=== PATIENT | female | born 1960 | race Caucasian/White ===

== ENCOUNTER 2021-04-23 11:51 | Inpatient (IN) | payer MEDICAID, SELFPAY ==
[2021-04-23] VITALS (57 sets, daily range): BP systolic 86–156; BP diastolic 63–111; PULSE 86–180; RESP 14–28; TEMP 36.7–37.1; O2SAT 89–100
--- NOTE | ~2021-04-23 | XR_ITS ---
EXAMINATION: [id number] DATE: 04/24/2021 09:30 INDICATION: Left pleural effusion status post thoracentesis. TECHNIQUE: A single frontal view of the chest was obtained. COMPARISON: Chest single view 04/23/2021, chest CT 04/23/2021 FINDINGS: There is a small left pleural effusion. There are airspace opacities in all left lung zones , consistent with left hilar mass, left upper lobe collapse, and left basilar atelectasis. Calcified left lung nodules and calcified left hilar lymph nodes are consistent with old granulomatous disease. There are lucencies in right lung, consistent with emphysema. No pneumothorax. There is rightward di splacement of the mediastinum. IMPRESSION: 1. Small left pleural effusion. 2. Left hilar mass, left upper lobe collapse, and left basilar atelectasis. 3. Emphysema. Reviewed, dictated and finalized at location A. SEWER
--- NOTE | ~2021-04-23 | CT_ITS ---
EXAMINATION: CT brain wo con DATE: 04/23/2021 20:26 INDICATION: Confusion TECHNIQUE: Computed tomography (CT) of the head was performed without intravenous contrast. Sagittal and coronal reconstructions were performed. The mA was adjusted according to patient size. Iterative reconstruction technique was employed. The dose-length product was 681.00 mGy-cm. COMPARISON: None FINDINGS: No acute intracranial hemorrhage, acute infarction or abnormal extra axial fluid collection. There is mild scattered white matter hypoattenuation consistent with chronic small vessel ischemic disease. S ymmetric prominence of the sulci consistent with mild age-appropriate diffuse cerebral volume loss. V entricles are normal and symmetric. No mass/mass effect. The orbits, paranasal sinuses and mastoid ai r cells are normal. IMPRESSION: 1. No acute intracranial process. 3. Normal age-related changes including mild diffuse volume loss and mild scattered white matter hypo attenuation consistent with chronic small vessel ischemic disease. Reviewed, dictated and finalized at location . FOLDER IMPRESSION: 1. No acute intracranial process. 3. Normal age-related changes including mild diffuse volume loss and mild scatt ered white matter hypoattenuation consistent with chronic small vessel ischemic disease.
--- NOTE | ~2021-04-23 | US_ITS ---
EXAMINATION: US thoracentesis DATE: 04/24/2021 09:34 INDICATION: pleural effusion TECHNIQUE: The procedure and its risks, benefits, and alternatives were discussed with the patient. P otential risks discussed included bleeding, infection, and pneumothorax. The patient understood the r isks and agreed to proceed. The skin was prepped and draped in sterile fashion. 1% lidocaine was used for local anesthesia. Under ultrasound guidance, a 5 Fr catheter with trochar was advanced into the left pleural effusion. Fluid was aspirated. The catheter was removed, and a dressing was applied. The re were no immediate complications. FINDINGS: Ultrasound images demonstrate a left pleural effusion and the catheter within the fluid. IMPRESSION: 1. Successful ultrasound-guided thoracentesis yielding 300 mL of serosanguineous fluid. Reviewed, dictated and finalized at location A. NAVIGATOR IMPRESSION: 1. Successful ultrasound-guided thoracentesis yielding 300 mL of serosanguineo us fluid.
--- NOTE | ~2021-04-23 | XR_ITS ---
EXAMINATION: XR chest 1V portable DATE: 04/23/2021 14:09 INDICATION: Dyspnea. TECHNIQUE: A single frontal view of the chest was obtained. COMPARISON: None. FINDINGS: Calcified left lung nodules are consistent with old granulomatous disease. There is a large left pleural effusion. There are airspace opacities in left lung with a basilar predominance. There is mild scarring at right lung apex. No pneumothorax. The heart size is obscured. IMPRESSION: 1. Large left pleural effusion. 2. Airspace opacities in left lung, consistent with atelectasis versus pneumonia. Reviewed, dictated and finalized at location A. EL PT IMPRESSION: 1. Large left pleural effusion. 2. Airspace opacities in left lung, consistent with atelectasis versus pneumoni a.
--- NOTE | ~2021-04-23 | CT_ITS ---
EXAMINATION: CT diagnostic chest wo con DATE: 04/23/2021 14:59 INDICATION: Left pleural effusion, fatigue TECHNIQUE: Computed tomography (CT) of the chest was performed without intravenous contrast. Automate d exposure control and iterative reconstruction technique were employed. Exam dose: 129.31 mGy-cm to george exam DLP. COMPARISON: 04/23/2021 portable AP chest FINDINGS: Diffuse moderately prominent emphysematous changes of the lungs are noted. There is a huge left upper lobe centrally necrotic soft tissue mass, measuring up to 16 cm vertical d imension, up to 9 cm or greater transverse dimension, engulfing the left hilum, invading the mediasti num,, shifting the heart mediastinum rightward. The findings are consistent with a huge bases left najma ng malignancy. There is mild left pleural effusion. There is patchy left basilar lower lobe infiltrate/atelectasis. There is minimal dependent right basilar lower lobe atelectasis. Right lung otherwise appears clear o f infiltrate or consolidation. Normal heart size. Relatively low attenuation blood pool suggesting anemia. Small pericardial effusion, likely due to pe ricardial invasion by the malignancy. No thoracic aortic aneurysm. Limited body fat is noted. No suspicious osteolytic or osteoblastic lesions are noted. IMPRESSION: Huge left central pulmonary malignancy invading the left hilum and mediastinum, with lik ta pericardial involvement and small pericardial effusion, with rightward shift of heart and mediast inum, left lower lobe infiltrate/atelectasis, mild left pleural effusion Emphysema Suggestion of anemia Reviewed, dictated and finalized at Location A. Reviewed, dictated and finalized at location B. ICIAN RELATIONS MANAGER IMPRESSION: 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ly pericardial involvement and small pericardial effusio n, with rightward shift of heart and mediastinum, left lower lobe infiltrate/at electasis, mild left pleural effusion Emphysema Suggestion of anemia
--- NOTE | ~2021-04-23 | US_ITS ---
EXAMINATION:US venous doppler LE BI INDICATION:Leg swelling TECHNIQUE: Multiple grayscale, color flow and Doppler images of the right and left lower extremity de ep venous systems were obtained and reviewed. COMPARISON:No prior studies for comparison. FINDINGS: The common femoral, superficial femoral and popliteal veins demonstrate normal respiratory variation, augmentation and compressibility. Color flow is also seen within the posterior tibial, pe roneal, greater saphenous and profunda veins. IMPRESSION: 1: No lower extremity deep venous thrombosis. Reviewed, dictated and finalized at location A. NURSE
--- NOTE | 2021-04-23 12:13 | PC.NURSE ---
ED charge nurse Geraldine notified of patient's s/s and that patient was placed on O2 while in triage.
--- NOTE | 2021-04-23 13:40 | ECG_ITS ---
Measurements Intervals [place] Rate: 92 P: 57 OK: 122 QRS: 48 QRSD: 89 T: 137 QT: 383 QTc: 476 Interpretive Statements SINUS RHYTHM POSSIBLE LEFT ATRIAL ENLARGEMENT ST-T WAVE ABNORMALITY IN DIFFUSE LEADS- CONSIDER ISCHEMIA BASELINE WANDER- I, II, V1, V4-V6 ABNORMAL ECG Electronically Signed On 04-23-2021 14:21:51 PATENT SOLICITOR by Moe Sahu D.O.
[2021-04-23 14:00] LABS: Hematocrit 34.4 % (37.0-47.0); Hemoglobin 10.8 g/dL (12.0-15.0); Mean Corpuscular HGB Conc 31.4 g/dl (32-36); Mean Corpuscular Hemoglobin 27.8 pg (26-34); Mean Corpuscular Volume 88.4 fl (80-100); Mean Platelet Volume 9.7 fl (7.4-10.4); Platelet Count Result 509 k/mm3 (150-375); Red Blood Count 3.89 M/mm3 (4.2-5.4); Red Cell Distribution Width 15.6 % (11.5-14.5)
--- NOTE | 2021-04-23 14:00 | PC.NURSE ---
Pt states she is allergic to medications because she doesn't like to take medications, she sates the only medication she takes is wilver selzer
[2021-04-23 14:01] LABS: Alveolar/Arterial O2 Gradient 61.7 mmHg; Base Excess ABG 9.4 mEq/l (+/-2.0); Fractional Inspired Oxygen 24 %; HCO3 ABG 32.8 mEq/l (22.0-26.0); Oxygen Content ABG 14.6 %vol (16.0-22.0); Oxygen Saturation ABG 93.9 % (95.0-100.0); Oxyhemoglobin 88.8 % THb (90.0-100.0); PCO2 ABG 40.2 mmHg (35.0-45.0); PO2 ABG 61.6 mmHg (80.0-100.0); PO2 FiO2 Ratio Arterial Blood 2.57 %; Total Hemoglobin 11.7 g/dL (12.0-18.0)
[2021-04-23 14:03] LABS: Device NASAL CANNULA; Modified Allen's Test Pass; Site Drawn RIGHT RADIAL
[2021-04-23 14:18] LABS: Alanine Aminotransferase 19 U/L (4-35); Albumin Level 3.1 g/dL (3.5-5.1); Alkaline Phosphatase 187 U/L (38-126); Anion Gap 4 mmol/L (8-16); Aspartate Amino Transferase 25 U/L (14-36); Bilirubin,Total 0.3 mg/dL (0.2-1.3); Blood Urea Nitrogen 16 mg/dL (7-17); Calcium 8.5 mg/dL (8.4-10.2); Carbon Dioxide 37 mmol/L (22-30); Chloride 91 mmol/L (98-107); Estimated CRCL calculation 94 ml/min; Estimated Glomerular Filt Rate > 60; Glucose 103 mg/dL (65-110); Potassium 3.5 mmol/L (3.4-5.0); Sodium 132 mmol/L (137-145)
[2021-04-23 14:28] LABS: NT Pro B Type Natriuretic Pept 3650 pg/mL (5-100); Troponin I 0.029 ng/mL (0.000-0.034)
--- NOTE | 2021-04-23 14:38 | ED.GENADULT ---
HPI - General Adult General Chief complaint: Unspecified Stated complaint: shortness of breath, leg swelling Time Seen by Provider: 04/23/21 13:10 Source: patient Mode of arrival: ambulatory Limitations: no limitations History of Present Illness HPI narrative: Patient drove herself to the emergency room from work complaining of being dying FOR weeks, shortness of breath, coughing, swelling legs for weeks/months. Patient does not take oxygen, patient is not on any medication at home, patient smokes, does not drink and uses marijuana occasionally. Patient is not vaccinated for COVID-19. Patient also telling me that she contracted RSV virus from her grandson sometime in the last few days/weeks Related Data Allergies Allergy/AdvReac Type Severity Reaction Status Date / Time No Known Allergies Allergy Verified 04/23/21 15:25 Review of Systems Review of Systems: CONSTITUTIONAL: Denies fever, chills, or sweats. EYES: Denies visual changes, redness, or discharge. ENT: Denies rhinorrhea, congestion, sore throat, or otalgia. CARDIOVASCULAR: Denies chest pain, palpitations, or edema. RESPIRATORY: Been coughing with shortness of breath GASTROINTESTINAL: Denies abdominal pain, nausea, vomiting, or diarrhea. GENITOURINARY: Denies dysuria or hematuria. SKIN: Denies rash or itching. MUSCULOSKELETAL: Denies back pain, joint pain, or myalgia. NEUROLOGIC: Denies headache, numbness, or weakness. PSYCHIATRIC: Denies anxiety or depression. Exam Narrative: General appearance: Well-developed, malnourished Skin: 2+ edema lower extremity bilaterally Head: Normocephalic, nontraumatic Eyes: Clear conjunctiva ENT: Oropharynx normal, ears normal, nose normal Neck: Supple, nontender Chest and respiratory: Diminution of air entry bilaterally with scattered with rales Heart: Regular rate/rhythm Abdomen: Soft, nontender, no organomegaly, quiet bowel sounds Vascular: Normal peripheral pulses, normal capillary refill. Musculoskeletal: Normal range of motion, nontender back Neurologic: Alert and oriented ?3, CARTON FILLER is normal as tested, no gross motor deficit Course Course Emergency Course: Stable Consultations Consultation #1: DR MUÑOZ Date: 04/23/21 Time: 17:25 Consultation #2: Dr. Muñoz Requested to stop Cardizem and start amiodarone. Date: 04/23/21 Time: 17:26 Vital Signs Vital signs: Vital Signs Temperature 37.1 C 04/23/21 12:03 Pulse Rate 105 H 04/23/21 12:03 Respiratory Rate 22 H 04/23/21 12:03 Blood Pressure 156/83 H 04/23/21 12:03 Pulse Oximetry 94 04/23/21 12:03 Temperature 36.7 C 04/23/21 12:57 Pulse Rate 161 H 04/23/21 17:12 Respiratory Rate 17 04/23/21 13:04 Blood Pressure 104/91 H 04/23/21 17:12 Pulse Oximetry 99 04/23/21 13:04 Medical Decision Making MDM Narrative Medical decision making narrative: Congestive heart failure, pneumonia, pulmonary embolism, nephrotic syndrome is my concern. Labs, chest x-ray, UA ordered Differential Diagnosis Differential Diagnosis: Nephrotic syndrome, congestive heart failure, pneumonia, pulmonary embolism Vital Signs Vital Signs: Vital Signs Temperature 37.1 C 04/23/21 12:03 Pulse Rate 105 H 04/23/21 12:03 Respiratory Rate 22 H 04/23/21 12:03 Blood Pressure 156/83 H 04/23/21 12:03 Pulse Oximetry 94 04/23/21 12:03 Temperature 36.7 C 04/23/21 12:57 Pulse Rate 161 H 04/23/21 17:12 Respiratory Rate 17 04/23/21 13:04 Blood Pressure 104/91 H 04/23/21 17:12 Pulse Oximetry 99 04/23/21 13:04 Lab Data Result diagrams: 04/23/21 13:51 04/23/21 13:51 Labs: Lab Results 04/23/21 04/23/21 04/23/21 Range/Units 13:51 13:51 13:51 WB
[2021-04-23 14:51] LABS: White Blood Count 56.4 K/mm3 (4.5-10.0)
[2021-04-23 14:53] LABS: Band Neutrophils Percent 6 % (0-6); Lymphocytes Absolute Manual 0.56 K/mm3 (1.1-4.5); Monocytes Absolute Manual 1.12 K/mm3 (0.1-0.90); Monocytes Percent Manual 2 % (3-9); Neutrophils Percent Manual 91 % (46-73); Platelet Estimate Increased (Adequate); Total Cells Counted 100
[2021-04-23 14:54] LABS: Anisocytosis 2+ (NORMAL); Hypochromasia 1+ (NORMAL)
[2021-04-23 14:58] LABS: Add Urine Microscopic? YES; Appearance Urine Clear (Clear); Bacteria Urine Trace /hpf; Bilirubin Urine Negative (Negative); Blood Urine Negative (Negative); Color Urine Amber (Yellow); Glucose Urine UA Negative (Negative); Ketones Urine Negative (Negative); Leukocyte Esterase Ur Negative LEU/UL (Negative); Mucus Urine Rare /lpf; Nitrate Urine Negative (Negative); Protein Urine 1+ mg/dL (Negative); Specific Grav Ur 1.023 (1.001-1.035); Squamous Epithelial Cell Urine Occasional /hpf (Few); WBC Urine 0-3 /hpf
[2021-04-23] MEDS: NITROGLYCERIN OINTMENT 1 INCH DOSE TRANSDERM (15:26)
[2021-04-23] MEDS: FUROSEMIDE INJ 40 MG/4 ML VIAL 60 MG IV PUSH (15:26)
[2021-04-23 16:10] LABS: Lactate Dehydrogenase 480 U/L (313-618)
[2021-04-23] MEDS: dilTIAZem HCl INJ 25 MG/5 ML VIAL 10 MG IV PUSH (16:21)
--- NOTE | 2021-04-23 17:00 | PM.IMHP ---
H&P: HPI History of Present Illness Date/Time: 04/23/21 17:00 this is a 60-year-old female patient who came to the emergency room complaining that she had been very short of breath for weeks and months. The patient stated I feel like I am dying . The patient does not use oxygen at home she is on on any medication at home. She does occasionally smoke marijuana smokes at least a pack a cigarettes a day. She has also been complaining of being short of breath, coughing, and increased swelling to lower extremities for weeks and months. Her white count was noted to be 56.4. H&H is 10.8 and 34.4. Arterial blood gases pH 7.530 PO2 was 61.6. The patient was placed on oxygen at 2 L per nasal cannula. Chest x-ray was read as large left pleural effusion. Airspace opacities in left lung consistent with atelectasis versus pneumonia. CT of the chest was read as the following 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ghtward shift of heart and mediastinum, left lower lobe infiltrate/atelectasis, mild left pleural effusion. Dr. higginbotham was called the patient was in AFib with RVR with heart rate in the 170s. The patient was given Versed and we were going to cardiovert her however the patient's heart rate dropped. Patient's blood pressure initially was 156/83. But then dropped down to 86/63. Patient was started on amiodarone. The patient then converted. The curing room supervisor has seen the patient and I did talk to the curing room supervisor myself. He did suggest that the patient may need a pericardial window on may need to be transferred. I did call the [facility] transfer line and I spoke with a Dr. Wallace and then I spoke with who agree to accept the patient however we are just waiting on a bed at this time. I spoke with the daughter who them came to the bedside. The daughter was able to give me some information concerning her mother that she was not taking any medications. I called [facility] Radiology who had already left for the day and was not able to do a thoracentesis. They may possibly do it tomorrow. The patient was given Lasix, nitro, azithromycin, Rocephin, Cardizem IV push amiodarone Valium and romazicon. The patient is being admitted to observation status on the date of service of 04/23/2021. Chief Complaint: Shortness of breath left chest Review of Systems Review of Systems: All systems reviewed & are unremarkable except as noted in HPI and below Constitutional: Constitutional: Reports as per HPI and Reports no additional constitutional complaints Eyes: Eyes: Reports as per HPI and Reports no additional eye complaints ENT: Reports system reviewed and no additional complaints, except as documented and Reports Normal hearing present Cardiovascular: Cardiovascular: Reports no additional cardiovascular complaints Respiratory: Respiratory: Reports no additional respiratory complaints and Reports no additional respiratory complaints Gastrointestinal: Gastrointestinal: Reports as per HPI and Reports no additional gastrointestinal complaints Musculoskeletal: Musculoskeletal: Reports no additional musculoskeletal complaints Integumentary/Breasts: Skin/Breast: Reports system reviewed and no additional complaints, except as docu and Reports as per HPI Neurologic: Reports system reviewed and no additional complaints, except as documented, Reports as per HPI and Reports Normal hearing present Psychiatric: Psychiatric: Reports no additional psychiatric complaints and Reports as per HPI Endocrine: Endocrine: Reports no additional endocrine complaints Hematologic/Lymphatic: Hematologic/Lymphatic: Reports no additional hematologic/lymphatic complaints Allergic/Immunologic: Allergic/Immunologic: Reports no additional allergic/immunologic complaints [facility] Past Medical History Medical History (Updated 04/23/21 @ 19:21 by Malina
--- NOTE | 2021-04-23 17:05 | PM.CNCAR ---
Assessment and Plan Assessment and plan (1) Pneumonia: Qualifiers: Laterality: left Lung location: unspecified part of lung Pneumonia type: due to unspecified organism Qualified Code(s): J18.9 - Pneumonia, unspecified organism Code(s): J18.9 - Pneumonia, unspecified organism Status: Acute Assessment and Plan: On antibiotics. (2) Pleural effusion: Code(s): J90 - Pleural effusion, not elsewhere classified Status: Acute Assessment and Plan: S/P left thoracentesis while in ER. This could be related to malignancy. Obtain echo to determine if related to CHF. With small pericardial effusion probably due to invasion of malignancy on CT chest, would prefer she be transferred to facility with CT surgeon for pericardial window. Discussed with Dr. Ramirez in ER and Nancy Bender, hospitalist. However, if no beds available to be transferred then will have her admitted here to be stabilized and managed in the interim. (3) Atrial fibrillation and flutter: Code(s): I48.91 - Unspecified atrial fibrillation; I48.92 - Unspecified atrial flutter Status: Acute Assessment and Plan: Due to relative hypotension, would cardiovert her to sinus rhythm, and place her on Amiodarone drip to maintain sinus rhythm. Due to potential for hemopericardium from malignancy involvement, would not anticoagulate at this time. Discussed with Dr. Ramirez in ER. History of Present Illness History of Present Illness Consult date/time: 04/23/21 17:05 Reason for consult: Atrial fibrillation. 60 yr old woman presented to ER with sob and swelling of legs. She smokes 1 ppd. Reports for last couple of months she has noted more CANTRELL and swelling of her legs. Denies chest pain, palpitations, dizziness. In ED labs show WBC 56, Hb 10.8, Plt 503. Sodium 130, Potassium 3.5. NTproBNP 3,650. CXR shows large left pleural effusion and left atelectasis vs pneumonia. She was sent to thoracentesis and immediately developed atrial fib/flutter with RVR up to 190 bpm and her BP is 95-[address] chest shows Huge left central pulmonary malignancy invading left hilum and mediastinum, likely pericardial involvement and small pericardial effusion and rightward shift of heart and mediastinum.. LLL infiltrate/atelectasis. Mild lef pleural effusion. Emphysema. Reason For Visit: shortness of breath, leg swelling Review of Systems Review of Systems: All systems reviewed & are unremarkable except as noted in HPI and below Constitutional: Constitutional: Reports as per HPI, Denies chills, Reports fatigue and Denies fever(s) Cardiovascular: Cardiovascular: Reports as per HPI, Denies chest pain, Reports leg edema and Denies lightheadedness Respiratory: Respiratory: Reports as per HPI and Reports dyspnea Gastrointestinal: Gastrointestinal: Reports as per HPI and Denies abdominal pain Genitourinary: Genitourinary: Reports as per HPI and Denies dysuria Musculoskeletal: Musculoskeletal: Reports as per HPI Neurologic: Reports as per HPI, Denies dizziness and Denies syncope Meds Home Medications and Allergies Allergies Allergy/AdvReac Type Severity Reaction Status Date / Time No Known Allergies Allergy Verified 04/23/21 15:25 Vital Signs Vital Signs - 24 hr 04/23/21 12:03 04/23/21 12:57 04/23/21 13:04 Temperature 98.8 F 98.1 F Pulse Rate 105 H 106 H 104 H Respiratory Rate 22 H 18 17 Blood Pressure 156/83 H 133/82 133/82 Pulse Oximetry 94 98 99 Exam Const: General: cooperative, well developed and alert Resp: Auscultation: crackles, rales, rhonchi, wheezes and diminished lung sounds Cardio: Jugular venous distension: no JVD Rate: tachycardic Rhythm: abnormal rhythm Heart sounds: no murmurs GI: GI Palp: No abdominal tenderness and Yes Soft to palpation Neuro: General: oriented to person, oriented to place and oriented to time Extrem: Right lower extremity: edema Left lower extremity: edema Other: Mild
[2021-04-23 17:10] LABS: Partial Thromboplastin Time 33.2 SECONDS (22.3-36.8); Prothrombin Time 13.5 Seconds (11.1-14.7)
[2021-04-23] MEDS: AMIODARONE 150 MG/D5W 100 ML 150 MG/100 ML BAG 600 MG IV CONT (17:12)
[2021-04-23 17:13] LABS: D Dimer 1.29 ug/mL (<0.48)
[2021-04-23] MEDS: diazePAM INJ (*CRX) 10 MG/2 ML SYRINGE 5 MG IV PUSH (17:26)
--- NOTE | 2021-04-23 17:29 | PC.NURSE ---
Dr. Ramirez ordered amiodarone 150mg and Valium 5mg to relax patient, pt agreed with , pt has about 200ml of amiodarone left in bag , pt HR decreased to 96, Dr. Ramirez ordered to stop amiodarone drip, pt blood pressure currently 90/65,
--- NOTE | 2021-04-23 17:30 | ECG_ITS ---
Measurements Intervals [place] Rate: 95 P: 43 CT: 126 QRS: 24 QRSD: 84 T: 151 QT: 386 QTc: 487 Interpretive Statements SINUS RHYTHM POSSIBLE LEFT ATRIAL ENLARGEMENT ST-T WAVE ABNORMALITY IN DIFFUSE LEADS- CONSIDER ISCHEMIA ABNORMAL ECG Electronically Signed On 04-25-2021 10:40:32 OPTO MECHANICAL TECHNICIAN by Moe Sahu D.O.
--- NOTE | 2021-04-23 18:00 | PC.NURSE ---
Pt awake, alert and asked to use the bed frank, repositioned pt changed gown, daughter at bedside
[2021-04-23 19:04] LABS: Troponin I 0.022 ng/mL (0.000-0.034)
--- NOTE | 2021-04-23 19:39 | PC.NURSE ---
SINCERE Cruz called and said patient has been accepted to [facility]. Waiting for bed assignment.
--- NOTE | 2021-04-23 21:03 | PC.NURSE ---
spoke with MD Rivero about BP of 91/63 with lasix and Nitro paste order. Order for lasix D/C'd at this time. will re-asses when Nitro is due.
[2021-04-23 21:18] LABS: Troponin I 0.026 ng/mL (0.000-0.034)
--- NOTE | 2021-04-23 22:20 | PC.NURSE ---
SPoke with MD about Amio and Nitro order. Will hold d/c for now.
[2021-04-24] VITALS (47 sets, daily range): BP systolic 87–121; BP diastolic 66–85; PULSE 78–98; RESP 11–24; O2SAT 94–100
--- NOTE | 2021-04-24 | ECHO_ITS ---
Patient Info Name: Teressa Poon Age: 60 years : 1960 Gender: Female Ht: 62 in Wt: 105 lbs BSA: 1.44 m2 HR: 86 bpm BP: 95 / 72 mmHg Heart Rhythm: Sinus Rhythm Technical Quality: Good Exam Date: 04/24/2021 7:39 AM Exam Location: [facility] Patient Status: Inpatient Admit Date: 04/24/2021 Staff Ordering Physician: Moe Sahu DO Regional Medical Director: RENY Attending Provider: Ivet Huang MD Exam Type: CA echo doppler color flow Study Info Complete two-dimensional, color flow and Doppler transthoracic echocardiogram is performed. Summary 1. Complete two-dimensional, color flow and Doppler transthoracic echocardiogram is performed. 2. Left ventricular chamber dimension is normal. 3. Left ventricular systolic function is normal, estimated at 60-65%. 4. The left ventricular diastolic function is abnormal. 5. E/e' 15 is elevated. 6. The mitral valve has mildly calcified annulus. 7. There is mild to moderate tricuspid valve regurgitation. 8. Severe pulmonary hypertension, estimated pulmonary arterial systolic pressure is 91 mmHg. 9. There is trivial pericardial effusion. Hypolucent area attached to basal to mid pericardium of posterior wall. Consider cardiac MRI for further evaluation. Left Ventricle E/e' 15 is elevated. Left ventricular chamber dimension is normal. Left ventricular systolic function is normal, estimated at 60-65%. The left ventricular diastolic function is abnormal. Right Ventricle Right ventricular systolic function is normal and with normal TAPSE 1.9 cm. Right ventricular chamber dimension is normal. Left Atria Left atrial chamber dimension is normal. Right Atria Right atrial chamber dimension is normal. Aortic Valve The aortic valve is trileaflet. There is no aortic valve stenosis. There is no aortic valve regurgitation. Pulmonic Valve There is no pulmonic regurgitation. Mitral Valve The mitral valve has mildly calcified annulus. There is no mitral valve stenosis. There is trace mitral valve regurgitation. Tricuspid Valve There is mild to moderate tricuspid valve regurgitation. Severe pulmonary hypertension, estimated pulmonary arterial systolic pressure is 91 mmHg. Pericardium/Pleural There is trivial pericardial effusion. Hypolucent area attached to basal to mid pericardium of posterior wall. Consider cardiac MRI for further evaluation. Inferior Vena Cava Normal inferior vena cava with >50% collapse upon inspiration consistent with normal right atrial pressure, 5 mmHg. Aorta The aortic root size at the sinus of Valsalva is normal. Left Ventricular Outflow Tract Name Value Normal LVOT 2D LVOT Diameter 2.0 cm LVOT Doppler LVOT Peak Gradient 3 mmHg LVOT Mean Gradient 1 mmHg LVOT VTI 11 cm LVOT VTI/AV VTI Ratio 0.6 LVOT Stroke Volume 34 ml LVOT CO 2.7 l/min LVOT CI 1.9 l/min/m2 Pulmonic Valve
[2021-04-24] MEDS: SODIUM CHLORIDE 0.9% IV 500 ML IV CONT (01:53)
--- NOTE | 2021-04-24 02:43 | PC.NURSE ---
ssm still at max capacity, will remain on a wait list.
--- NOTE | 2021-04-24 02:46 | PC.NURSE ---
[facility] Transfer Center called for updated triage on patient. NO BED AVAILABLE as of yet. Patient remains on waitlist.
[2021-04-24 06:44] LABS: Hematocrit 34.2 % (37.0-47.0); Hemoglobin 10.6 g/dL (12.0-15.0); Mean Corpuscular Volume 90.5 fl (80-100); Mean Platelet Volume 9.8 fl (7.4-10.4); Platelet Count Result 516 k/mm3 (150-375); Red Blood Count 3.78 M/mm3 (4.2-5.4); Red Cell Distribution Width 15.8 % (11.5-14.5)
[2021-04-24 06:56] LABS: Lactic Acid Reflex 1.4 mmol/L (0.7-2.1)
[2021-04-24 07:00] LABS: Alanine Aminotransferase 16 U/L (4-35); Albumin Level 2.9 g/dL (3.5-5.1); Alkaline Phosphatase 208 U/L (38-126); Anion Gap 5 mmol/L (8-16); Aspartate Amino Transferase 28 U/L (14-36); Bilirubin,Total 0.3 mg/dL (0.2-1.3); Blood Urea Nitrogen 16 mg/dL (7-17); Calcium 8.5 mg/dL (8.4-10.2); Carbon Dioxide 37 mmol/L (22-30); Chloride 90 mmol/L (98-107); Estimated CRCL calculation 66 ml/min; Estimated Glomerular Filt Rate > 60; Glucose 92 mg/dL (65-110); Lactate Dehydrogenase 400 U/L (313-618); Lipase 20 U/L (23-300); Magnesium 1.8 mg/dL (1.6-2.3); Phosphorus 4.6 mg/dL (2.5-4.5); Potassium 3.6 mmol/L (3.4-5.0); Sodium 132 mmol/L (137-145)
--- NOTE | 2021-04-24 07:31 | PM.PNCARD ---
Progress Note: A&P Assessment and Plan (1) Pneumonia: Qualifiers: Laterality: left Lung location: unspecified part of lung Pneumonia type: due to unspecified organism Qualified Code(s): J18.9 - Pneumonia, unspecified organism Code(s): J18.9 - Pneumonia, unspecified organism Status: Acute Assessment and Plan: On antibiotics. (2) Pleural effusion: Code(s): J90 - Pleural effusion, not elsewhere classified Status: Acute Assessment and Plan: This could be related to malignancy. She will need tissue biopsy. Obtain echo to determine if related to CHF. With small pericardial effusion probably due to invasion of malignancy on CT chest, would prefer she be transferred to facility with CT surgeon for pericardial window. Discussed with Dr. Ramirez in ER and Nancy Bender, hospitalist. However, if no beds available to be transferred then will have her admitted here to be stabilized and managed in the interim. Await a bed at [facility]. (3) Atrial fibrillation and flutter: Code(s): I48.91 - Unspecified atrial fibrillation; I48.92 - Unspecified atrial flutter Status: Acute Assessment and Plan: Due to relative hypotension, would cardiovert her to sinus rhythm, and place her on Amiodarone drip to maintain sinus rhythm. However, she converted without need for DC cardioversion, and in sinus rhythm now. Due to potential for hemopericardium from malignancy involvement, would not anticoagulate at this time. Discussed with Dr. Ramirez in ER. D/C NTP. Obtain EKG. (4) COPD (chronic obstructive pulmonary disease): Code(s): J44.9 - Chronic obstructive pulmonary disease, unspecified Status: Acute Assessment and Plan: Actively wheezing. Will need bronchodilators. (5) Tobacco abuse: Code(s): Z72.0 - Tobacco use Status: Chronic Assessment and Plan: Counseled regarding smoking cessation. Subjective Date/time seen: 04/24/21 07:31 Reports feeling better than yesterday. Still has some sob. No chest pains. Exam Const: General: cooperative, no acute distress, well developed and alert Resp: Auscultation: wheezes and diminished lung sounds Cardio: Jugular venous distension: no JVD Rate: regular rate Rhythm: regular rhythm Heart sounds: no murmurs GI: GI Palp: No abdominal tenderness and Yes Soft to palpation Neuro: General: oriented to person, oriented to place and oriented to time Extrem: Right lower extremity: edema Left lower extremity: edema Other: Trace edema of both legs Objective Data Vital Signs Vital Signs: Vital Signs - 24 hr 04/23/21 12:03 04/23/21 12:57 04/23/21 13:04 Temperature 98.8 F 98.1 F Pulse Rate 105 H 106 H 104 H Respiratory Rate 22 H 18 17 Blood Pressure 156/83 H 133/82 133/82 Pulse Oximetry 94 98 99 04/23/21 13:05 04/23/21 13:15 04/23/21 13:16 Temperature Pulse Rate 104 H 101 H 100 Respiratory Rate 22 H 19 18 Blood Pressure 133/82 102/77 Pulse Oximetry 97 100 100 04/23/21 13:32 04/23/21 13:52 04/23/21 14:00 Temperature Pulse Rate 99 141 H 100 Respiratory Rate 17 21 H 18 Blood Pressure 103/74 Pulse Oximetry 100 97 97 04/23/21 14:02 04/23/21 14:15 04/23/21 14:17 Temperature Pulse Rate 100 95 93 Respiratory Rate 18 19 18 Blood Pressure 111/94 H Pulse Oximetry 97 96 98 04/23/21 14:30 04/23/21 14:31 04/23/21 14:46 Temperature Pulse Rate 93 93 94 Respiratory Rate 15 14 19 Blood Pressure 102/78 Pulse Oximetry 97 97 100 04/23/21 15:04 04/23/21 15:17 04/23/21 15:19 Temperature Pulse Rate 94 98 99 Respiratory Rate 20 19 20 Blood Pressure 126/111 H Pulse Oximetry 100 100 100 04/23/21 15:32 04/23/21 16:20 04/23/21 16:42 Temperature Pulse Rate 97 170 H 162 H Respiratory Rate 22 H 18 20 Blood Pressure Pulse Oximetry 100 98 92 04/23/21 16:45 04/23/21 16:46 04/23/21 17:00 Temperature Pulse Rate 160 H 159 H 180 H Respiratory Rate 21 H 20 21 H Bloo
--- NOTE | 2021-04-24 07:37 | ECG_ITS ---
Measurements Intervals [place] Rate: 95 P: 71 ID: [id number] QRS: 48 QRSD: 90 T: 136 QT: 384 QTc: 484 Interpretive Statements SINUS RHYTHM POSSIBLE LEFT ATRIAL ENLARGEMENT ST-T WAVE ABNORMALITY IN ANTEROLAT/HIGH LAT LEADS- CONSIDER ISCHEMIA BASELINE ARTIFACT- I, II, III, AVL, V1-V3 ABNORMAL ECG Electronically Signed On 04-24-2021 11:04:14 X RAY TECHNOLOGIST by Moe Sahu D.O.
[2021-04-24 07:58] LABS: White Blood Count 51.3 K/mm3 (4.5-10.0)
[2021-04-24 08:17] LABS: Band Neutrophils Percent 6 % (0-6); Monocytes Absolute Manual 2.56 K/mm3 (0.1-0.90); Monocytes Percent Manual 5 % (3-9); Neutrophils Absolute Manual 48.73 K/mm3 (1.7-7.2); Neutrophils Percent Manual 89 % (46-73); Total Cells Counted 100
[2021-04-24 08:18] LABS: Platelet Estimate Increased (Adequate)
[2021-04-24 09:52] LABS: pH Pleural Fluid 7.424 (7.210-7.500)
--- NOTE | 2021-04-24 10:03 | PC.NURSE ---
Patient states she wishes to hold off on lasix at this time and received medication until after she has ate. Meal tray ordered for patient. Patient provided snack and drink.
--- NOTE | 2021-04-24 10:13 | PC.NURSE ---
Patient states she has a reaction to most medications. She does not have a list of allergies.
[2021-04-24] MEDS: AMIODARONE 360 MG/D5W 200 ML 360 MG/200 ML BAG 16.67 MG IV CONT ×2 (11:11→22:28)
[2021-04-24] MEDS: FUROSEMIDE INJ 40 MG/4 ML VIAL IV PUSH ×2 (11:18→22:30)
[2021-04-24] MEDS: BENZOCAINE/MENTHOL (*BKC) 18 EA LOZENGE 1 LOZENGE PO (11:18)
--- NOTE | 2021-04-24 12:15 | PM.IMPN ---
Progress Note: A&P Assessment and Plan (1) Atrial fibrillation and flutter: Code(s): I48.91 - Unspecified atrial fibrillation; I48.92 - Unspecified atrial flutter Status: Acute Assessment and Plan: AFib with RVR noted after a little time in the ed Amiodarone drip continued converted back to SR Cardiology has been consulted telemonitor Heart healthy diet Hold off on anticoagulation with anticipation of surgical procedure in the near future EKG from this morning shows SR (2) Pneumonia: Qualifiers: Laterality: left Lung location: unspecified part of lung Pneumonia type: due to unspecified organism Qualified Code(s): J18.9 - Pneumonia, unspecified organism Code(s): J18.9 - Pneumonia, unspecified organism Status: Acute Assessment and Plan: Chest xray showed airspace opacities in left lung consistent with atelectasis vs PNA\ Chest ct shows left lower lobe infiltrate/atelectasis white count is 56.4 azithromycin and Rocephin Blood cultures are pending Sputum cultures is pending Coty to cultures (3) CHF (congestive heart failure): Qualifiers: Heart failure chronicity: unspecified Heart failure type: unspecified Qualified Code(s): I50.9 - Heart failure, unspecified Code(s): I50.9 - Heart failure, unspecified Status: Acute Assessment and Plan: Echo shows EF of 60-65% severe pulmonary hypertension Diastolic dysfunction is abnormal Would classify this as an acute exacerbation of diastolic heart failure secondary to malignancy IV lasix Pitting edema in the lower extremities Trend output Daily weights (4) Tobacco abuse: Code(s): Z72.0 - Tobacco use Status: Chronic Assessment and Plan: The patient was counseled on smoking cessation. 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ghtward shift of heart and mediastinum [facility] accepted patient awaiting a bed Cards is suggesting a pericardial window Might need to have this drained if no improvement noted Probably why she went into afib (7) COPD (chronic obstructive pulmonary disease): Code(s): J44.9 - Chronic obstructive pulmonary disease, unspecified Status: Acute Assessment and Plan: Emphysema noted on the CT Will probably need inhalers Supplemental oxygen She is probably in exacerbation due to increased wheezes, salty sputum changes, and increased shortness of breath Will add steroids Consider add pulm to the case (8) Malignancy: Code(s): C80.1 - Malignant (primary) neoplasm, unspecified Status: Acute Assessment and Plan: 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
--- NOTE | 2021-04-24 12:15 | P.PNIM_ITS ---
Progress Note: A&P Assessment and Plan (1) Atrial fibrillation and flutter: Code(s): I48.91 - Unspecified atrial fibrillation; I48.92 - Unspecified atrial flutter Status: Acute Assessment and Plan: * AFib with RVR noted after a little time in the ed * Amiodarone drip continued * converted back to SR * Cardiology has been consulted * telemonitor * Heart healthy diet * Hold off on anticoagulation with anticipation of surgical procedure in the near future * EKG from this morning shows SR (2) Pneumonia: Qualifiers: Laterality: left Lung location: unspecified part of lung Pneumonia type: due to unspecified organism Qualified Code(s): J18.9 - Pneumonia, unspecified organism Code(s): J18.9 - Pneumonia, unspecified organism Status: Acute Assessment and Plan: * Chest xray showed airspace opacities in left lung consistent with atelectasis vs PNA\ * Chest ct shows left lower lobe infiltrate/atelectasis * white count is 56.4 * azithromycin and Rocephin * Blood cultures are pending * Sputum cultures is pending * Coty to cultures (3) CHF (congestive heart failure): Qualifiers: Heart failure chronicity: unspecified Heart failure type: unspecified Qualified Code(s): I50.9 - Heart failure, unspecified Code(s): I50.9 - Heart failure, unspecified Status: Acute Assessment and Plan: * Echo shows EF of 60-65% * severe pulmonary hypertension * Diastolic dysfunction is abnormal * Would classify this as an acute exacerbation of diastolic heart failure secondary to malignancy * IV lasix * Pitting edema in the lower extremities * Trend output * Daily weights (4) Tobacco abuse: Code(s): Z72.0 - Tobacco use Status: Chronic Assessment and Plan: * The patient was counseled on smoking cessation. 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ghtward shift of heart and mediastinum * [facility] accepted patient awaiting a bed * Cards is suggesting a pericardial window * Might need to have this drained if no improvement noted * Probably why she went into afib (7) COPD (chronic obstructive pulmonary disease): Code(s): J44.9 - Chronic obstructive pulmonary disease, unspecified Status: Acute Assessment and Plan: * Emphysema noted on the CT * Will probably need inhalers * Supplemental oxygen * She is probably in exacerbation due to increased wheezes, salty sputum changes, and increased shortness of breath * Will add steroids * Consider add pulm to the case (8) Malignancy: Code(s): C80.1 - Malignant (primary) neoplasm, unspecified Status: Acute Assessment and Plan: * 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
--- NOTE | 2021-04-24 13:22 | PC.NURSE ---
patient ate 75% of meal. Water provided. patient has void and BM. Call light within reach.
[2021-04-24 23:53] LABS: EDCOVIDSCREEN Negative (Negative)
[2021-04-27 21:21] LABS: Glucose Pleural Fluid 68 mg/dL; LDH Pleural Fluid 835 U/L; Total Protein Pleural Fluid <3.0 g/dL
--- NOTE | 2021-05-04 05:23 | P.TS_ITS ---
Transfer Discharge Sum: Prov Provider Date of admission: 04/24/21 12:09 Primary care physician: VIBRATOR OPERATOR PHYSICIAN Admitting clinician: Ivet Huang MD Consults: 04/24/21 Consult to Physician Routine Comment: Consulting Provider: Rodolfo Simmons Reason for consultation: malignancy Has provider been notified: No Consult to Physician Routine Comment: Consulting Provider: Moe Sahu Reason for consultation: afib rvr Has provider been notified: Yes DS: Admitting Diagnosis Discharge Date 04/25/21 2312 Admitting Diagnosis Pericardial effusion / lung mass DS: Discharge Diagnosis Discharge Diagnosis (1) Atrial fibrillation and flutter: Code(s): I48.91 - Unspecified atrial fibrillation; I48.92 - Unspecified atrial flutter Status: Acute Assessment and Plan: * AFib with RVR noted after a little time in the ed * Amiodarone drip continued * converted back to SR * Cardiology has been consulted * telemonitor * Heart healthy diet * Hold off on anticoagulation with anticipation of surgical procedure in the near future * EKG from this morning shows SR (2) Pneumonia: Qualifiers: Laterality: left Lung location: unspecified part of lung Pneumonia type: due to unspecified organism Qualified Code(s): J18.9 - Pneumonia, unspecified organism Code(s): J18.9 - Pneumonia, unspecified organism Status: Acute Assessment and Plan: * Chest xray showed airspace opacities in left lung consistent with atelectasis vs PNA\ * Chest ct shows left lower lobe infiltrate/atelectasis * white count is 56.4 * azithromycin and Rocephin * Blood cultures are pending * Sputum cultures is pending * Coty to cultures (3) CHF (congestive heart failure): Qualifiers: Heart failure chronicity: unspecified Heart failure type: unspecified Qualified Code(s): I50.9 - Heart failure, unspecified Code(s): I50.9 - Heart failure, unspecified Status: Acute Assessment and Plan: * Echo shows EF of 60-65% * severe pulmonary hypertension * Diastolic dysfunction is abnormal * Would classify this as an acute exacerbation of diastolic heart failure secondary to malignancy * IV lasix * Pitting edema in the lower extremities * Trend output * Daily weights (4) Tobacco abuse: Code(s): Z72.0 - Tobacco use Status: Chronic Assessment and Plan: * The patient was counseled on smoking cessation. 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
--- NOTE | 2021-05-04 05:23 | PM.TDS ---
Transfer Discharge Sum: Prov Provider Date of admission: 04/24/21 12:09 Primary care physician: CRADLE PLACER PHYSICIAN Admitting clinician: Ivet Huang MD Consults: 04/24/21 Consult to Physician Routine Comment: Consulting Provider: Rodolfo Simmons Reason for consultation: malignancy Has provider been notified: No Consult to Physician Routine Comment: Consulting Provider: Moe Sahu Reason for consultation: afib rvr Has provider been notified: Yes DS: Admitting Diagnosis Discharge Date 04/25/212 Admitting Diagnosis Pericardial effusion / lung mass DS: Discharge Diagnosis Discharge Diagnosis (1) Atrial fibrillation and flutter: Code(s): I48.91 - Unspecified atrial fibrillation; I48.92 - Unspecified atrial flutter Status: Acute Assessment and Plan: AFib with RVR noted after a little time in the ed Amiodarone drip continued converted back to SR Cardiology has been consulted telemonitor Heart healthy diet Hold off on anticoagulation with anticipation of surgical procedure in the near future EKG from this morning shows SR (2) Pneumonia: Qualifiers: Laterality: left Lung location: unspecified part of lung Pneumonia type: due to unspecified organism Qualified Code(s): J18.9 - Pneumonia, unspecified organism Code(s): J18.9 - Pneumonia, unspecified organism Status: Acute Assessment and Plan: Chest xray showed airspace opacities in left lung consistent with atelectasis vs PNA\ Chest ct shows left lower lobe infiltrate/atelectasis white count is 56.4 azithromycin and Rocephin Blood cultures are pending Sputum cultures is pending Coty to cultures (3) CHF (congestive heart failure): Qualifiers: Heart failure chronicity: unspecified Heart failure type: unspecified Qualified Code(s): I50.9 - Heart failure, unspecified Code(s): I50.9 - Heart failure, unspecified Status: Acute Assessment and Plan: Echo shows EF of 60-65% severe pulmonary hypertension Diastolic dysfunction is abnormal Would classify this as an acute exacerbation of diastolic heart failure secondary to malignancy IV lasix Pitting edema in the lower extremities Trend output Daily weights (4) Tobacco abuse: Code(s): Z72.0 - Tobacco use Status: Chronic Assessment and Plan: The patient was counseled on smoking cessation. 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ghtward shift of heart and mediastinum [facility] accepted patient awaiting a bed Cards is suggesting a pericardial window Might need to have this drained if no improvement noted Probably why she went into afib (7) COPD (chronic obstructive pulmonary disease): Code(s): J44.9 - Chronic obstructive pulmonary disease, unspecified Status: Acute Assessment and Plan: Emphysema noted on the CT Will probably need inhalers Supplemental oxygen She is probably in exacerbation due to increased wheezes, salty sputum changes, and increased shortness of breath Will add steroids Consider add pulm to the case (8) Malignancy: Code(s): C80.1 - Malignant (primary) neoplasm, unspecified Status: Acute Assessment and Plan: 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
== END 2021-04-25 00:23 | disposition short-term general hospital (02) | DRG 136 ==
LOC: ANHED 15:08 → ANHIMU 04-24 08:55 → ANH3MEDSUR 04-30 10:59
PROVIDERS: Emergency Medicine; Nurse Practitioner; Admitting Provider Internal Medicine; Emergency Provider Emergency Medicine; Visit Provider Nurse Practitioner
DX: C34.02 Malignant neoplasm of left main bronchus; I48.91 Unspecified atrial fibrillation; I48.92 Unspecified atrial flutter; J18.9 Pneumonia, unspecified organism; I50.33 Acute on chronic diastolic (congestive) heart failure; J91.8 Pleural effusion in other conditions classified elsewhere; I31.3 Pericardial effusion (noninflammatory); I27.20 Pulmonary hypertension, unspecified; J43.9 Emphysema, unspecified; Z20.822 Contact with and (suspected) exposure to COVID-19; D72.829 Elevated white blood cell count, unspecified; F17.210 Nicotine dependence, cigarettes, uncomplicated; Z28.21 Immunization not carried out because of patient refusal
CPT/HCPCS: 32555; 36415; 36600; 70450; 71045; 71250; 80053; 80299; 81001; 82805; 82945; 83605; 83615; 83690; 83735; 83880; 83986; 84100; 84157; 84443; 84484; 85025; 85380; 85610; 85730; 87040; 87070; 87075; 87205; 87426; 88104; 88108; 88305; 93005; 93306; 93970; 96361; 96365; 96367; 96375; 96376; 99285; A9270; C9803; G0378; G0379; J0282; J0456; J0696; J1940; J3360; J7040

== ENCOUNTER 2021-05-20 16:23 | Inpatient (IN) | payer MEDICAID, SELFPAY ==
[2021-05-20] VITALS (13 sets, daily range): BP systolic 103–180; BP diastolic 67–95; PULSE 78–89; RESP 13–26; TEMP 36.1; O2SAT 95–99
--- NOTE | ~2021-05-20 | CT_ITS ---
EXAMINATION: CTA chest PE protocol DATE: 05/20/2021 21:53 INDICATION: Shortness of breath, elevated d-dimer. History of lung cancer. TECHNIQUE: Computed tomography angiography (CTA) of the chest was performed with 100 mL Omnipaque-350 intravenous contrast timed to evaluate the pulmonary arteries. Coronal maximum intensity projection 3D-reconstructions were created by the technologist. Automated exposure control and iterative reconst ruction technique were employed. Exam dose: 144.58 mGy-cm total exam DLP. COMPARISON: 05/20/2021 portable AP chest 04/23/2021 CT chest FINDINGS: There is a huge up to 10 x 15 cm centrally hypodense presumably necrotic mass of the left u pper lobe, with invasion of the left hilum and mediastinum, with extension into the pericardial area and likely invasion of the left ventricular myocardium, with compression and invasion of the left pul monary veins. There is compression of the main left pulmonary and upper lobe arteries. There is right soriano shift of the heart mediastinum. No pulmonary embolism is detected. No thoracic aortic aneurysm or dissection. Prominent emphysematous changes are noted. There is mild discoid atelectasis and/or scarring in the l ower lobes. Mild left pleural effusion. No suspicious osteolytic or osteoblastic lesions are noted. IMPRESSION: Huge left upper lobe lung mass invading the left hilum, mediastinum and left heart and l eft pulmonary veins No pulmonary embolism is detected. Reviewed, dictated and finalized at [facility]. Reviewed, dictated and finalized at location A. OR APPLICATION PROGRAMMER IMPRESSION: Huge left upper lobe lung mass invading the left hilum, mediastinu m and left heart and left pulmonary veins No pulmonary embolism is detected.
--- NOTE | ~2021-05-20 | US_ITS ---
EXAMINATION: US venous doppler [facility] DATE: 05/23/2021 16:54 INDICATION: Lower limb edema. TECHNIQUE: Grayscale ultrasound images without and with compression and Doppler ultrasound images of the bilateral lower extremity veins were obtained. COMPARISON: Ultrasound 04/24/2021 FINDINGS: The visualized portions of right common femoral vein, profunda (deep) femoral vein, femoral vein, pop liteal vein, peroneal veins, posterior tibial veins, and greater saphenous vein outflow are patent. The visualized portions of left common femoral vein, profunda femoral vein, femoral vein, popliteal v ein, peroneal veins, posterior tibial veins, and greater saphenous vein outflow are patent. IMPRESSION: 1. No deep venous thrombosis. Reviewed, dictated and finalized at location A. D NURSE
--- NOTE | ~2021-05-20 | XR_ITS ---
EXAMINATION: XR chest 1V portable EXAM DATE: 05/20/2021 19:16 INDICATION: Shortness of breath. Left hilar malignancy TECHNIQUE: Portable AP frontal chest x-ray was obtained. Comparison is made to prior examination from 04/24/2021. FINDINGS: Left lung lobar collapse and pleural effusion. Enlarged cardiomediastinal silhouette. Left hilar malignancy was confirmed on chest CT last month. Right lung is clear. No pneumothorax. There ar e no osseous abnormalities identified. There is no significant interval change. IMPRESSION: Left hilar, mediastinal malignancy, partially collapsed left lung. Reviewed, dictated and finalized at location G. IFIED JUVENILE PROBATION OFFICER
--- NOTE | 2021-05-20 19:08 | ECG_ITS ---
Measurements Intervals [place] Rate: 83 P: 30 PA: 132 QRS: 35 QRSD: 90 T: 123 QT: 377 QTc: 443 Interpretive Statements SINUS RHYTHM ST-T WAVE ABNORMALITY IN INFERIOR LEADS- CONSIDER ISCHEMIA BASELINE ARTIFACT- I, II, III, AVR, AVL, AVF, V2-V6 ABNORMAL ECG Electronically Signed On 05-20-2021 20:29:09 LUMBER LOADER by Moe Sahu D.O.
--- NOTE | 2021-05-20 19:09 | ED.GENADULT ---
HPI - General Adult General Chief complaint: Unspecified <Juliet Rivero MD - Last Filed: 05/24/21 08:33> Stated complaint: MULTIPLE C/O <Juliet Rivero MD - Last Filed: 05/24/21 08:33> Time Seen by Provider: 05/20/21 18:50 <Juliet Rivero MD - Last Filed: 05/24/21 08:33> Source: patient <Juliet Rivero MD - Last Filed: 05/24/21 08:33> History of Present Illness HPI narrative: Patient is a 60 y/o female complaining SOB, malaise, leg swelling for several days. There is no known alleviating or exacerbating factor. She feels like she may be catching pneumonia and she may fluid built up. She also has decrease urination. Of note, she was evaluated here recently and found to have lung mass with pericardial invasion and sent to [facility] for evaluation. She states that she was discharge about 2 weeks ago. <Juliet Rivero MD - Last Filed: 05/24/21 08:33> Related Data Home medications: Home Medications Medication Instructions Recorded Confirmed amiodarone 200 mg PO DAILY 05/20/21 05/20/21 dexamethasone 4 mg PO DAILY 05/20/21 05/20/21 pantoprazole 40 mg PO DAILY 05/20/21 05/23/21 dextromethorphan HBr [Delsym] 30 mg PO PRN PRN 05/23/21 05/23/21 <Juliet Rivero MD - Last Filed: 05/24/21 08:33> Allergies/adverse reactions: Allergies Allergy/AdvReac Type Severity Reaction Status Date / Time black tea AdvReac Other Uncoded 05/20/21 20:48 pain meds AdvReac Other Uncoded 05/23/21 14:40 sausage AdvReac Other Uncoded 05/20/21 20:48 <Juliet Rivero MD - Last Filed: 05/24/21 08:33> Review of Systems Constitutional: Constitutional: Denies chills, Denies fever(s), Denies headache(s) and Denies weakness <Juliet Rivero MD - Last Filed: 05/24/21 08:33> Eyes: Eyes: Denies blurry vision <Juliet Rivero MD - Last Filed: 05/24/21 08:33> ENT: Denies headache(s) and Denies neck pain <Juliet Rivero MD - Last Filed: 05/24/21 08:33> Cardiovascular: Cardiovascular: Denies chest pain and Reports dyspnea <Juliet Rivero MD - Last Filed: 05/24/21 08:33> Respiratory: Respiratory: Denies cough and Reports dyspnea <Juliet Rivero MD - Last Filed: 05/24/21 08:33> Gastrointestinal: Gastrointestinal: Denies abdominal pain, Denies diarrhea, Denies nausea and Denies vomiting <Juliet Rivero MD - Last Filed: 05/24/21 08:33> Genitourinary: Genitourinary: Denies hematuria and Denies dysuria <Juliet Rivero MD - Last Filed: 05/24/21 08:33> Musculoskeletal: Musculoskeletal: Denies back pain, Denies neck pain and Reports other (leg swelling) <Juliet Rivero MD - Last Filed: 05/24/21 08:33> Neurologic: Denies headache(s) and Denies weakness <Juliet Rivero MD - Last Filed: 05/24/21 08:33> PMFSH Past Medical History Medical History: Medical History (Updated 05/23/21 @ 15:54 by Nancy Bender NP) Atrial fibrillation and flutter COPD (chronic obstructive pulmonary disease) Malignancy Pericardial effusion Pericardial mass Tobacco abuse <Juliet Rivero MD - Last Filed: 05/24/21 08:33> Surgical History Surgical History: Surgical History History of lung biopsy No pertinent past surgical history <Juliet Rivero MD - Last Filed: 05/24/21 08:33> Family History Family History: Family History Father Heart disease Mother Stomach cancer <Juliet Rivero MD - Last Filed: 05/24/21 08:33> Social History Social History: Social History (Updated 05/23/21 @ 15:45 by Nancy Bender NP) Social History: The patient is and she lives home alone. She smoked at least a pack a cigarettes a day. She stated that she has quit since her last admission. She has 3 children 2 sons and a daughter. The daughter is the durable power private tutor for healthcare. The patient denies any alcohol and occasionally smokes marijuana. 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
[2021-05-20 19:17] LABS: Hematocrit 35.1 % (37.0-47.0); Hemoglobin 10.7 g/dL (12.0-15.0); Mean Corpuscular HGB Conc 30.5 g/dl (32-36); Mean Corpuscular Hemoglobin 28.9 pg (26-34); Mean Corpuscular Volume 94.9 fl (80-100); Mean Platelet Volume 9.9 fl (7.4-10.4); Platelet Count Result 186 k/mm3 (150-375); Red Cell Distribution Width 21.6 % (11.5-14.5); White Blood Count 48.9 K/mm3 (4.5-10.0)
[2021-05-20 19:27] LABS: Alanine Aminotransferase 30 U/L (4-35); Albumin Level 3.3 g/dL (3.5-5.1); Alkaline Phosphatase 135 U/L (38-126); Anion Gap 8 mmol/L (8-16); Aspartate Amino Transferase 21 U/L (14-36); Bilirubin,Total 0.3 mg/dL (0.2-1.3); Blood Urea Nitrogen 21 mg/dL (7-17); Calcium 8.2 mg/dL (8.4-10.2); Carbon Dioxide 31 mmol/L (22-30); Chloride 98 mmol/L (98-107); Estimated CRCL calculation 96 ml/min; Estimated Glomerular Filt Rate > 60; Glucose 110 mg/dL (65-110); Potassium 4.1 mmol/L (3.4-5.0); Sodium 137 mmol/L (137-145)
[2021-05-20] MEDS: SODIUM CHLORIDE 0.9% IV 1,000 ML 999 ML IV CONT (19:33)
[2021-05-20 19:45] LABS: Add Urine Microscopic? YES; Appearance Urine Clear (Clear); Bilirubin Urine Negative (Negative); Blood Urine Negative (Negative); Color Urine Yellow (Yellow); Glucose Urine UA 2+ mg/dL (Negative); Ketones Urine Negative (Negative); Leukocyte Esterase Ur Negative LEU/UL (Negative); Mucus Urine Moderate /lpf; Nitrate Urine Negative (Negative); Protein Urine Negative (Negative); Specific Grav Ur 1.029 (1.001-1.035); Squamous Epithelial Cell Urine Occasional /hpf (Few); Urobilinogen Urine Negative mg/dL (<2.0); WBC Urine 0-3 /hpf
[2021-05-20 20:20] LABS: Anisocytosis 1+ (NORMAL); Band Neutrophils Percent 18 % (0-6); Lymphocytes Absolute Manual 0.48 K/mm3 (1.1-4.5); Monocytes Absolute Manual 0.97 K/mm3 (0.1-0.90); Monocytes Percent Manual 2 % (3-9); Neutrophils Absolute Manual 47.43 K/mm3 (1.7-7.2); Neutrophils Percent Manual 79 % (46-73); Platelet Estimate Adequate (Adequate); Total Cells Counted 100; Troponin I 0.036 ng/mL (0.000-0.034)
[2021-05-20 20:21] LABS: Hypochromasia 1+ (NORMAL)
[2021-05-20 21:27] LABS: D Dimer 0.67 ug/mL (<0.48)
[2021-05-20 22:58] LABS: Troponin I 0.065 ng/mL (0.000-0.034)
[2021-05-21] VITALS (80 sets, daily range): BP systolic 88–118; BP diastolic 58–76; PULSE 78–125; RESP 10–24; O2SAT 92–100
[2021-05-21 00:13] LABS: Influenza A QL RT-PCR Negative (Negative); Influenza B QL RT-PCR Negative (Negative); SARS-CoV-2 RNA PCR Negative
[2021-05-21 02:40] LABS: Troponin I 0.085 ng/mL (0.000-0.034)
[2021-05-21] MEDS: AMIODARONE HCL 200 MG TABLET PO (08:52)
[2021-05-21] MEDS: PANTOPRAZOLE 40 MG TABLET PO (08:52)
--- NOTE | 2021-05-21 09:53 | PC.NURSE ---
recovery unit operator made contact with [facility] to find out the status of a bed for pt. [facility]. Facility is still at max capacity
--- NOTE | 2021-05-21 11:27 | PC.NURSE ---
risk assessment analyst ordered pt room tray at [phone]
--- NOTE | 2021-05-21 11:46 | PC.NURSE ---
junior legal secretary delivered room tray to pt at [phone]
--- NOTE | 2021-05-21 17:21 | PC.NURSE ---
payroll secretary brought pt room tray. pt is sitting up and eating at this time.
[2021-05-22] VITALS (29 sets, daily range): BP systolic 89–115; BP diastolic 61–95; PULSE 81–131; RESP 11–30; TEMP 36.5; O2SAT 17–100
[2021-05-22] MEDS: SODIUM CHLORIDE 0.9% IV 1,000 ML 999 ML IV CONT (03:06)
--- NOTE | 2021-05-22 03:45 | PC.NURSE ---
Rimma ramos/[facility] Transfer Center called. Patient still on waitlist, no beds available as of yet. Will call back with updates...&/or when one becomes available.
[2021-05-22 05:45] LABS: Hematocrit 32.7 % (37.0-47.0); Hemoglobin 10.1 g/dL (12.0-15.0); Mean Corpuscular HGB Conc 30.9 g/dl (32-36); Mean Corpuscular Hemoglobin 29.4 pg (26-34); Mean Corpuscular Volume 95.3 fl (80-100); Mean Platelet Volume 9.8 fl (7.4-10.4); Platelet Count Result 161 k/mm3 (150-375); Red Blood Count 3.43 M/mm3 (4.2-5.4); Red Cell Distribution Width 21.9 % (11.5-14.5); White Blood Count 33.1 K/mm3 (4.5-10.0)
[2021-05-22 06:01] LABS: Alanine Aminotransferase 32 U/L (4-35); Albumin Level 2.9 g/dL (3.5-5.1); Alkaline Phosphatase 106 U/L (38-126); Anion Gap 5 mmol/L (8-16); Aspartate Amino Transferase 26 U/L (14-36); Bilirubin,Total 0.2 mg/dL (0.2-1.3); Blood Urea Nitrogen 17 mg/dL (7-17); Calcium 7.6 mg/dL (8.4-10.2); Carbon Dioxide 28 mmol/L (22-30); Chloride 99 mmol/L (98-107); Estimated CRCL calculation 123 ml/min; Estimated Glomerular Filt Rate > 60; Glucose 94 mg/dL (65-110); Sodium 132 mmol/L (137-145)
[2021-05-22 06:07] LABS: Band Neutrophils Percent 3 % (0-6); Metamyelocytes Percent 2 %; Monocytes Absolute Manual 0.99 K/mm3 (0.1-0.90); Monocytes Percent Manual 3 % (3-9); Neutrophils Absolute Manual 31.44 K/mm3 (1.7-7.2); Neutrophils Percent Manual 92 % (46-73); Platelet Estimate Adequate (Adequate); Total Cells Counted 100
--- NOTE | 2021-05-22 07:15 | PC.NURSE ---
meal ordered for patient.
[2021-05-22] MEDS: PANTOPRAZOLE SODIUM IV 40 MG VIAL IV PUSH (08:14)
[2021-05-22] MEDS: DEXAMETHASONE 4 MG TABLET PO (08:45)
[2021-05-22] MEDS: AMIODARONE HCL 200 MG TABLET PO (08:46)
[2021-05-23] VITALS (16 sets, daily range): BP systolic 94–150; BP diastolic 65–104; PULSE 77–138; RESP 12–22; TEMP 36.4–36.7; O2SAT 96–100; BMI 20.7; BMI 20.5
--- NOTE | 2021-05-23 04:40 | PC.NURSE ---
Nika with [facility] called and stated [facility] is still over capacity and Te[facility]a is still on the board for a bed.
--- NOTE | 2021-05-23 07:29 | PC.NURSE ---
This RN ordered Breakfast lunch and dinner for Pt
[2021-05-23] MEDS: PANTOPRAZOLE SODIUM IV 40 MG VIAL IV PUSH (09:09)
[2021-05-23 11:34] LABS: Hematocrit 32.9 % (37.0-47.0); Hemoglobin 10.3 g/dL (12.0-15.0); Mean Corpuscular HGB Conc 31.3 g/dl (32-36); Mean Corpuscular Hemoglobin 29.3 pg (26-34); Mean Corpuscular Volume 93.5 fl (80-100); Mean Platelet Volume 9.8 fl (7.4-10.4); Platelet Count Result 182 k/mm3 (150-375); Red Blood Count 3.52 M/mm3 (4.2-5.4); White Blood Count 42.5 K/mm3 (4.5-10.0)
[2021-05-23 11:44] LABS: Alanine Aminotransferase 33 U/L (4-35); Albumin Level 3.1 g/dL (3.5-5.1); Alkaline Phosphatase 116 U/L (38-126); Anion Gap 3 mmol/L (8-16); Aspartate Amino Transferase 22 U/L (14-36); Bilirubin,Total 0.3 mg/dL (0.2-1.3); Blood Urea Nitrogen 13 mg/dL (7-17); Calcium 8.4 mg/dL (8.4-10.2); Carbon Dioxide 32 mmol/L (22-30); Chloride 96 mmol/L (98-107); Estimated CRCL calculation 123 ml/min; Estimated Glomerular Filt Rate > 60; Glucose 105 mg/dL (65-110); Potassium 3.9 mmol/L (3.4-5.0); Sodium 131 mmol/L (137-145)
[2021-05-23 12:05] LABS: Anisocytosis 1+ (NORMAL); Band Neutrophils Percent 10 % (0-6); Hypochromasia 1+ (NORMAL); Lymphocytes Absolute Manual 0.42 K/mm3 (1.1-4.5); Monocytes Absolute Manual 0.42 K/mm3 (0.1-0.90); Monocytes Percent Manual 1 % (3-9); Neutrophils Absolute Manual 41.65 K/mm3 (1.7-7.2); Neutrophils Percent Manual 88 % (46-73); Platelet Estimate Adequate (Adequate); Total Cells Counted 100
[2021-05-23 12:35] LABS: Troponin I 0.135 ng/mL (0.000-0.034)
--- NOTE | 2021-05-23 15:32 | PM.IMHP ---
H&P: HPI History of Present Illness Date/Time: 05/23/21 1400 this is a 60-year-old female patient who was diagnosed with lung cancer 1 month ago. The patient stated that she has undergoing radiation treatment and she said that she did have a biopsy and she is waiting for the cytology. The patient came into the hospital on 05/20/2021 with complaints of shortness of breath, malaise, leg swelling for several days. The patient has had decreased urination. She has been awaiting placement at [facility]. It was noted that the patient did have some EKG changes and cardiology was called was suggested that the EKG changes most likely are due to her cancer and pericardial involvement. Do not recommend the catheter finisher and inspector at this time. Dr. Simmons had been notified per ED and recommends thoracentesis by Radiology. The patient is now on oxygen at 2 L per nasal cannula which is her home setting. Her white count has been chronically elevated her white count has been up to 56.4 in the past and today is 42.5. H&H is 10.3 and 32.9. Her sodium is 131. Her troponin is 0.135. CTA was performed on 05/21/2021 which was read as he would left upper lobe lung mass invading the left hilum, mediastinum and left heart and left pulmonary veins. No Sada an area embolism was detected. The patient was empirically started on azithromycin Rocephin for possible pneumonia. The patient is being admitted to the hospital here until [facility] has a bed. The patient is being admitted to observation status on the date of service of 05/23/2021. ....... Side note. (She also has a history of atrial fibrillation last admission she was found to have acute left central pulmonary malignancy invading the left hilum and mediastinum, with likely pericardial involvement and small pericardial effusion, with a rightward shift of heart and mediastinum, left lower lobe infiltrate/atelectasis mild left pleural effusion.) Chief Complaint: Shortness of breath Review of Systems Review of Systems: All systems reviewed & are unremarkable except as noted in HPI and below Constitutional: Constitutional: Reports as per HPI and Reports no additional constitutional complaints Eyes: Eyes: Reports as per HPI and Reports no additional eye complaints ENT: Reports system reviewed and no additional complaints, except as documented and Reports Normal hearing present Cardiovascular: Cardiovascular: Reports no additional cardiovascular complaints Respiratory: Respiratory: Reports no additional respiratory complaints and Reports no additional respiratory complaints Gastrointestinal: Gastrointestinal: Reports as per HPI and Reports no additional gastrointestinal complaints Musculoskeletal: Musculoskeletal: Reports no additional musculoskeletal complaints Integumentary/Breasts: Skin/Breast: Reports system reviewed and no additional complaints, except as docu and Reports as per HPI Neurologic: Reports system reviewed and no additional complaints, except as documented, Reports as per HPI and Reports Normal hearing present Psychiatric: Psychiatric: Reports no additional psychiatric complaints and Reports as per HPI Endocrine: Endocrine: Reports no additional endocrine complaints Hematologic/Lymphatic: Hematologic/Lymphatic: Reports no additional hematologic/lymphatic complaints Allergic/Immunologic: Allergic/Immunologic: Reports no additional allergic/immunologic complaints [facility] Past Medical History Medical History (Updated 05/23/21 @ 15:54 by Nancy Bender NP) Atrial fibrillation and flutter COPD (chronic obstructive pulmonary disease) Malignancy Pericardial effusion Pericardial mass Tobacco abuse Surgical History Surgical History History of lung biopsy No pertinent past surgical history Family History Family History Father Heart disease Mother Stomach cancer Social History Social
[2021-05-23] MEDS: AMIODARONE HCL 200 MG TABLET PO (18:24)
[2021-05-24] VITALS (10 sets, daily range): BP systolic 91–109; BP diastolic 57–66; PULSE 80–96; RESP 16–18; TEMP 36.2–37.1; O2SAT 94–100
[2021-05-24 06:33] LABS: Basophils Absolute Auto 0.1 K/mm3 (0.0-0.1); Basophils Percent Auto 0.5 % (0.2-1.2); Eosinophils Absolute Auto 0.3 K/mm3 (0-0.3); Hematocrit 33.2 % (37.0-47.0); Hemoglobin 10.2 g/dL (12.0-15.0); Immature Granulocyte Absolute 0.46 K/mm3 (0.00-0.031); Immature Granulocyte Percent A 1.5 % (0-0.5); Lymphocytes Absolute Auto 0.41 K/mm3 (0.9-3.2); Lymphocytes Percent Auto 1.3 % (18.3-44.2); Mean Corpuscular HGB Conc 30.7 g/dl (32-36); Mean Corpuscular Hemoglobin 29.4 pg (26-34); Mean Corpuscular Volume 95.7 fl (80-100); Mean Platelet Volume 10.3 fl (7.4-10.4); Monocytes Absolute Auto 0.7 K/mm3 (0.1-0.6); Monocytes Percent Auto 2.3 % (2.6-8.5); Neutrophils Absolute Auto 28.8 K/mm3 (1.3-6.7); Neutrophils Percent Auto 93.4 % (45.5-73.1); Platelet Count Result 182 k/mm3 (150-375); Red Blood Count 3.47 M/mm3 (4.2-5.4); Red Cell Distribution Width 22.2 % (11.5-14.5); White Blood Count 30.8 K/mm3 (4.5-10.0)
[2021-05-24 06:51] LABS: Lactic Acid Reflex 1.5 mmol/L (0.7-2.1)
[2021-05-24 06:53] LABS: Alanine Aminotransferase 35 U/L (4-35); Albumin Level 2.9 g/dL (3.5-5.1); Alkaline Phosphatase 125 U/L (38-126); Anion Gap 4 mmol/L (8-16); Aspartate Amino Transferase 21 U/L (14-36); Bilirubin,Total 0.2 mg/dL (0.2-1.3); Blood Urea Nitrogen 17 mg/dL (7-17); CRP 4.3 mg/dL (<1.0); Calcium 8.2 mg/dL (8.4-10.2); Carbon Dioxide 35 mmol/L (22-30); Chloride 92 mmol/L (98-107); Estimated CRCL calculation 81 ml/min; Estimated Glomerular Filt Rate > 60; Glucose 71 mg/dL (65-110); Lactate Dehydrogenase 640 U/L (313-618); Lipase 64 U/L (23-300); Magnesium 1.8 mg/dL (1.6-2.3); Potassium 4.4 mmol/L (3.4-5.0); Sodium 131 mmol/L (137-145)
[2021-05-24] MEDS: FUROSEMIDE INJ 40 MG/4 ML VIAL 20 MG IV PUSH (08:42)
[2021-05-24] MEDS: AMIODARONE HCL 200 MG TABLET PO (08:42)
[2021-05-24] MEDS: PANTOPRAZOLE 40 MG TABLET PO (08:42)
[2021-05-24] MEDS: ENOXAPARIN 40 MG/0.4 ML SYRINGE SUB-Q (08:44)
[2021-05-24 09:17] LABS: Free T4 Free Thyroxine Reflex 1.06 ng/dL (0.78-2.19)
[2021-05-24] MEDS: DEXAMETHASONE 4 MG TABLET PO (09:25)
[2021-05-24 10:08] LABS: Total Triiodothyronine (T3) 0.75 NG/ML (0.97-1.69)
--- NOTE | 2021-05-24 14:47 | PM.IMPN ---
Progress Note: A&P Assessment and Plan (1) Lung mass: Code(s): R91.8 - Other nonspecific abnormal finding of lung field Status: Acute Assessment and Plan: The patient is a 60-year-old woman with a history of tobacco abuse, paroxysmal atrial fibrillation on amiodarone, recent diagnosis of large left lung mass invading the left hilum, mediastinum, left heart and left pulmonary veins 04/23/2021 where she was transferred to [facility] for further workup and evaluation, who presented to the emergency room May 20, 2021 for increased shortness of breath, malaise, and leg swelling over the last few days. The patient was transferred to [facility] last hospitalization where she had extensive workup for her lung mass which included a biopsy which is still pending, radiation treatment, evaluation by an oncologist and was discharged about 2 weeks ago. She had been at home on a new set of medication and was doing well until she began noticing leg swelling and shortness of breath over the last few days was brought her to the emergency room. She also is feeling dehydrated with decreased urination. Initial vitals showed blood pressure 103/68, heart rate 89 beats per minute, afebrile, 96% on her normal 2 L of oxygen via nasal cannula. Initial labs showed leukocytosis at 48,000 with elevated neutrophil count at 89%, normocytic anemia with a hemoglobin of 10, hematocrit 35%, elevated D-dimer at 0.67, normal renal function, slightly dehydrated with elevated BUN at 21, normal LFTs, elevated troponin at 0.036 and extending his high as 0.135. Urinalysis showed 2+ glucose otherwise no signs of infection. She was negative for COVID PCR, and influenza A&B. Chest x-ray on arrival showed left hilar, mediastinal malignancy, partial collapsed left lung. CTA of chest was completed due to elevated D-dimer which showed no PE, Huge left upper lobe lung mass invading the left hilum, mediastinum and left heart and left pulmonary veins. Venous Doppler showed no DVT. Due to the patient's recent workup at [facility] she was accepted to their facility accepting physician Dr. Bee but we are awaiting bed availability. The patient was admitted to the hospitalist service on 05/23/2021 to continue with treatment until a bed becomes available at [facility]. Patient is currently being treated for possible pneumonia with IV azithromycin and Rocephin #5 this evening, will discontinue IV azithromycin tomorrow and continue Rocephin for a total of 7 days Continue monitoring respiratory status at this time and awaiting bed for [facility]. (2) Pericardial mass: Code(s): I31.8 - Other specified diseases of pericardium Status: Chronic Assessment and Plan: See above. (3) General weakness: Code(s): R53.1 - Weakness Status: Acute Assessment and Plan: Could be due to underlying pneumonia from large mass verses leg swelling causing generalized weakness. Continue with physical and occupational therapy (4) Dehydration: Code(s): E86.0 - Dehydration Status: Acute Assessment and Plan: Patient states she is urinating better with the IV Lasix. Does not feel dehydrated any longer. Renal function is normal. (5) Elevated troponin: Code(s): R77.8 - Other specified abnormalities of plasma proteins Status: Acute Assessment and Plan: Patient had elevated troponins and the EKG showed some abnormality. The ER physician had consulted the cardiology group here who felt that the EKG changes and elevated troponins were associated with her lung mass involving her left heart. Currently at this time she is not having any chest pain. (6) Pericardial effusion: Code(s): I31.3 - Pericardial e
[2021-05-25] VITALS (10 sets, daily range): BP systolic 92–104; BP diastolic 60–62; PULSE 80–133; RESP 12–20; TEMP 36.2–36.6; O2SAT 98–100
[2021-05-25 05:29] LABS: Hematocrit 32.3 % (37.0-47.0); Mean Corpuscular Volume 93.6 fl (80-100); Mean Platelet Volume 10.4 fl (7.4-10.4); Platelet Count Result 215 k/mm3 (150-375); Red Blood Count 3.45 M/mm3 (4.2-5.4); Red Cell Distribution Width 22.2 % (11.5-14.5)
[2021-05-25 05:46] LABS: White Blood Count 50.4 K/mm3 (4.5-10.0)
[2021-05-25 05:47] LABS: Anion Gap 4 mmol/L (8-16); Blood Urea Nitrogen 19 mg/dL (7-17); Calcium 8.3 mg/dL (8.4-10.2); Carbon Dioxide 32 mmol/L (22-30); Chloride 95 mmol/L (98-107); Estimated CRCL calculation 81 ml/min; Estimated Glomerular Filt Rate > 60; Glucose 111 mg/dL (65-110); Potassium 3.9 mmol/L (3.4-5.0); Sodium 131 mmol/L (137-145)
[2021-05-25] MEDS: FUROSEMIDE INJ 40 MG/4 ML VIAL 20 MG IV PUSH (08:39)
[2021-05-25] MEDS: ENOXAPARIN 40 MG/0.4 ML SYRINGE SUB-Q (08:39)
[2021-05-25] MEDS: AMIODARONE HCL 200 MG TABLET PO (08:40)
[2021-05-25] MEDS: PANTOPRAZOLE 40 MG TABLET PO (08:40)
[2021-05-25] MEDS: DEXAMETHASONE 4 MG TABLET PO (08:40)
--- NOTE | 2021-05-25 10:09 | PM.IMPN ---
Progress Note: A&P Assessment and Plan (1) Lung mass: Code(s): R91.8 - Other nonspecific abnormal finding of lung field Status: Acute Assessment and Plan: The patient is a 60-year-old woman with a history of tobacco abuse, paroxysmal atrial fibrillation on amiodarone, recent diagnosis of large left lung mass invading the left hilum, mediastinum, left heart and left pulmonary veins 04/23/2021 where she was transferred to [facility] for further workup and evaluation, who presented to the emergency room May 20, 2021 for increased shortness of breath, malaise, and leg swelling over the last few days. The patient was transferred to [facility] last hospitalization where she had extensive workup for her lung mass which included a biopsy which is still pending, radiation treatment, evaluation by an oncologist and was discharged about 2 weeks ago. She had been at home on a new set of medication and was doing well until she began noticing leg swelling and shortness of breath over the last few days was brought her to the emergency room. She also is feeling dehydrated with decreased urination. Initial vitals showed blood pressure 103/68, heart rate 89 beats per minute, afebrile, 96% on her normal 2 L of oxygen via nasal cannula. Initial labs showed leukocytosis at 48,000 with elevated neutrophil count at 89%, normocytic anemia with a hemoglobin of 10, hematocrit 35%, elevated D-dimer at 0.67, normal renal function, slightly dehydrated with elevated BUN at 21, normal LFTs, elevated troponin at 0.036 and extending his high as 0.135. Urinalysis showed 2+ glucose otherwise no signs of infection. She was negative for COVID PCR, and influenza A&B. Chest x-ray on arrival showed left hilar, mediastinal malignancy, partial collapsed left lung. CTA of chest was completed due to elevated D-dimer which showed no PE, Huge left upper lobe lung mass invading the left hilum, mediastinum and left heart and left pulmonary veins. Venous Doppler showed no DVT. Due to the patient's recent workup at [facility] she was accepted to their facility accepting physician Dr. Bee but we are awaiting bed availability. The patient was admitted to the hospitalist service on 05/23/2021 to continue with treatment until a bed becomes available at [facility]. Patient is currently being treated for possible pneumonia with IV azithromycin (Discontinue Azithromycin #5) and Rocephin #6, continue Rocephin for a total of 7 days Continue monitoring respiratory status at this time and awaiting bed for [facility]. (2) Pericardial mass: Code(s): I31.8 - Other specified diseases of pericardium Status: Chronic Assessment and Plan: See above. (3) General weakness: Code(s): R53.1 - Weakness Status: Acute Assessment and Plan: Could be due to underlying pneumonia from large mass verses leg swelling causing generalized weakness. Continue with physical and occupational therapy (4) Dehydration: Code(s): E86.0 - Dehydration Status: Acute Assessment and Plan: Patient states she is urinating better with the IV Lasix. Does not feel dehydrated any longer. Renal function is normal. (5) Elevated troponin: Code(s): R77.8 - Other specified abnormalities of plasma proteins Status: Acute Assessment and Plan: Patient had elevated troponins and the EKG showed some abnormality. The ER physician had consulted the cardiology group here who felt that the EKG changes and elevated troponins were associated with her lung mass involving her left heart. Currently at this time she is not having any chest pain. (6) Pericardial effusion: Code(s): I31.3 - Pericardial effusion (noninflammatory)
[2021-05-26] VITALS (7 sets, daily range): BP systolic 113; BP diastolic 77; PULSE 77–94; RESP 18; TEMP 36.9; O2SAT 97–100
[2021-05-26 05:42] LABS: Hematocrit 31.5 % (37.0-47.0); Hemoglobin 9.6 g/dL (12.0-15.0); Mean Corpuscular HGB Conc 30.5 g/dl (32-36); Mean Corpuscular Volume 95.2 fl (80-100); Mean Platelet Volume 10.2 fl (7.4-10.4); Platelet Count Result 255 k/mm3 (150-375); Red Blood Count 3.31 M/mm3 (4.2-5.4); Red Cell Distribution Width 22.5 % (11.5-14.5); White Blood Count 48.3 K/mm3 (4.5-10.0)
[2021-05-26 05:55] LABS: Anion Gap 1 mmol/L (8-16); Blood Urea Nitrogen 16 mg/dL (7-17); Calcium 8.3 mg/dL (8.4-10.2); Carbon Dioxide 35 mmol/L (22-30); Chloride 94 mmol/L (98-107); Estimated CRCL calculation 98 ml/min; Estimated Glomerular Filt Rate > 60; Glucose 138 mg/dL (65-110); Magnesium 1.9 mg/dL (1.6-2.3); Potassium 4.1 mmol/L (3.4-5.0); Sodium 130 mmol/L (137-145)
[2021-05-26] MEDS: PANTOPRAZOLE 40 MG TABLET PO (08:30)
[2021-05-26] MEDS: ENOXAPARIN 40 MG/0.4 ML SYRINGE SUB-Q (08:30)
[2021-05-26] MEDS: AMIODARONE HCL 200 MG TABLET PO (08:30)
[2021-05-26] MEDS: FUROSEMIDE INJ 40 MG/4 ML VIAL 20 MG IV PUSH (08:31)
--- NOTE | 2021-05-26 11:06 | PM.DS ---
DS: Admitting Diagnosis Discharge Date 05/26/21 Admitting Diagnosis Shortness of breath and leg swelling DS: Discharge Diagnosis Discharge Diagnosis (1) Lung mass: Code(s): R91.8 - Other nonspecific abnormal finding of lung field Status: Acute Assessment and Plan: The patient is a 60-year-old woman with a history of tobacco abuse, paroxysmal atrial fibrillation on amiodarone, recent diagnosis of large left lung mass invading the left hilum, mediastinum, left heart and left pulmonary veins 04/23/2021 where she was transferred to [facility] for further workup and evaluation, who presented to the emergency room May 20, 2021 for increased shortness of breath, malaise, and leg swelling over the last few days. The patient was transferred to [facility] last hospitalization where she had extensive workup for her lung mass which included a biopsy which is still pending, radiation treatment, evaluation by an oncologist and was discharged about 2 weeks ago. She had been at home on a new set of medication and was doing well until she began noticing leg swelling and shortness of breath over the last few days was brought her to the emergency room. She also is feeling dehydrated with decreased urination. Initial vitals showed blood pressure 103/68, heart rate 89 beats per minute, afebrile, 96% on her normal 2 L of oxygen via nasal cannula. Initial labs showed leukocytosis at 48,000 with elevated neutrophil count at 89%, normocytic anemia with a hemoglobin of 10, hematocrit 35%, elevated D-dimer at 0.67, normal renal function, slightly dehydrated with elevated BUN at 21, normal LFTs, elevated troponin at 0.036 and extending his high as 0.135. Urinalysis showed 2+ glucose otherwise no signs of infection. She was negative for COVID PCR, and influenza A&B. Chest x-ray on arrival showed left hilar, mediastinal malignancy, partial collapsed left lung. CTA of chest was completed due to elevated D-dimer which showed no PE, Huge left upper lobe lung mass invading the left hilum, mediastinum and left heart and left pulmonary veins. Venous Doppler showed no DVT. Due to the patient's recent workup at [facility] she was accepted to their facility accepting physician Dr. Bee but we are awaiting bed availability. The patient was admitted to the hospitalist service on 05/23/2021 to continue with treatment until a bed becomes available at [facility]. Patient is currently being treated for possible pneumonia with IV azithromycin (Discontinue Azithromycin #5) and Rocephin #6, the patient will get 1 more day of oral cefdinir for the treatment of her community-acquired pneumonia. 05/26/21: Patient states she is feeling much better today and since [facility] was unsure of when they will be getting a bed she wants to be discharged home at this time and she can follow-up with them as an outpatient. Otherwise she is feeling well at this time and breathing at her baseline. She feels comfortable going home and following up with her specialist at [facility]. She is going to call her specialist and primary care to make a sooner appointment after her hospitalization. Gave her strict instructions about monitoring her weight low-salt diet which she understands. Return to ER warnings given. The patient understands agrees the plan all questions answered. (2) Pericardial mass: Code(s): I31.8 - Other specified diseases of pericardium Status: Chronic Assessment and Plan: See above. (3) General weakness: Code(s): R53.1 - Weakness Status: Acute Assessment and Plan: Could be due to underlying pneumonia from large mass verses leg swelling causing generalized weakness. Continue with physical and occupational therapy (4) Dehydration: Code(s): E86.0 - Dehydration Status: Acute Assessment an
--- NOTE | 2021-05-29 11:15 | PC.NURSE ---
Cefdinir is susceptible for the sputum cx growing pseudomonas aeruginosa per Simona Guzman BLADE ALIGNER.
== END 2021-05-26 14:25 | disposition home or self-care (01) | DRG 139 ==
LOC: ANHED 05-23 12:20 → ANH2MED 05-23 12:46
PROVIDERS: Emergency Medicine; Nurse Practitioner; Physician Assistant; Admitting Provider Family Medicine; Emergency Provider Emergency Medicine; Visit Provider Internal Medicine
DX: J18.9 Pneumonia, unspecified organism (principal); I31.8 Other specified diseases of pericardium; I48.91 Unspecified atrial fibrillation; J44.9 Chronic obstructive pulmonary disease, unspecified; F12.90 Cannabis use, unspecified, uncomplicated; E86.0 Dehydration; C34.92 Malignant neoplasm of unspecified part of left bronchus or lung; Z87.891 Personal history of nicotine dependence; R77.8 Other specified abnormalities of plasma proteins; I48.0 Paroxysmal atrial fibrillation; I50.9 Heart failure, unspecified; Z20.822 Contact with and (suspected) exposure to COVID-19
CPT/HCPCS: 36415; 71045; 71275; 80048; 80053; 81001; 82728; 83605; 83615; 83690; 83735; 84439; 84443; 84480; 84484; 85025; 85027; 85380; 86140; 87040; 87070; 87077; 87106; 87186; 87205; 87502; 93005; 93970; 96361; 96365; 96366; 96367; 96368; 96372; 96375; 97161; 97165; 99285; A9270; C9113; C9803; G0378; G0379; J0456; J0696; J1650; J1940; J7030; J8540; Q9967; U0003; U0005